=== PATIENT | female | born 1965 | race Two or more races ===

== ENCOUNTER → 2018-05-03 | Outpatient (CLI) | payer OTHER | LOC: FIMAGING 09:24 | PROVIDERS: ATTEND Surgery | DX: K44.9 Diaphragmatic hernia without obstruction or gangrene (principal); K22.70 Barrett's esophagus without dysplasia ==

== ENCOUNTER 2018-05-09 11:41 | Inpatient (IN) | payer OTHER ==
[~2018-05-09 11:41] MED LIST: BUPIVACAINE 0.5% 30 ML SDV ONE; HEPARIN 1000 UNIT/1 ML MDV ONE; ceFAZolin 1 GM/5 ML SYR ONE; cefOXitin SODIUM 2 GM in NS 100 ML IV ONE
[2018-05-09] MEDS ORDERED: LR 1,000 ML IV ONE (12:04)
--- NOTE | 2018-05-09 12:27 | PDHPUP ---
History & Physical Update H&P update statement: This history and physical update is based on an assessment of the patient which was completed after admission or registration (within 24 hours), but prior to the surgery/procedure. H&P update: H&P reviewed & patient examined, no change in patient's condition since H&P completed
--- NOTE | 2018-05-09 12:43 | PDANEPAE ---
ANE Past Medical History - Cardiovascular History Hx Hypertension: No Hx Arrhythmias: No Hx Chest Pain: No Hx Coronary Artery / Peripheral Vascular Disease: No Hx CHF / Valvular Disease: No Hx Palpitations: No - Pulmonary History Hx COPD: No Hx Asthma/Reactive Airway Disease: No Hx Recent Upper Respiratory Infection: No Hx Oxygen in Use at Home: No Hx Sleep Apnea: No - Neurologic History Hx Cerebrovascular Accident: No Hx Seizures: No Hx Dementia: No - Endocrine History Hx Diabetes: No - Renal History Hx Renal Disorders: No - Liver History Hx Hepatic Disorders: No - Neurological & Psychiatric Hx Hx Neurological and Psychiatric Disorders: No - Cancer History Hx Cancer: No - Congenital Disorder History Hx Congenital Disorders: No - GI History Hx Gastrointestinal Disorders: Yes Gastrointestinal History Comment: GERD-nexium. - Other Health History Other Health History: None - Chronic Pain History Chronic Pain: No - Surgical History Prior Surgeries: 2010-bladder sling. Total hysterectomy. ANE Review of Systems Review of Systems: ANE Patient History - Allergies Allergies/Adverse Reactions: No Known Allergies Allergy (Verified 05/08/18 13:46) - Home Medications Home Medications: Cholecalciferol Vit D3 [Vitamin D3 (*)] 1,000 units PO DAILY 05/08/18 [Last Taken 3 Days Ago ~05/06/18] Cyanocobalamin [Vitamin B12 (*)] 1,000 mcg PO DAILY 05/08/18 [Last Taken 3 Days Ago ~05/06/18] Esomeprazole Magnesium [Nexium 24Hr] 20 mg PO DAILY 05/08/18 [Last Taken ] Ferrous Sulfate [Ferrous Sulf 325 MG (*)] 325 mg PO DAILY 05/08/18 [Last Taken 2 Days Ago ~05/07/18] - NPO status NPO Since - Liquids (Date): 05/08/18 NPO Since - Liquids (Time): 21:00 NPO Since - Solids (Date): 05/08/18 NPO Since - Solids (Time): 22:30 - Smoking Hx Smoking Status: Never smoked - Family Anes Hx Family Hx Anesthesia Complications: none ANE Labs/Vital Signs - Vital Signs Blood Pressure: 119/84 Heart Rate: 84 Respiratory Rate: 14 O2 Sat (%): 93 Height: 152.4 cm Weight: 72.575 kg ANE Physical Exam - Airway Mallampati Score: Class 1 - ASA Status ASA Status: II ANE Anesthesia Plan Anesthesia Plan: general endotracheal anesthesia
[2018-05-09] MEDS ORDERED: MIDAZOLAM 2 MG/2 ML VIAL ONE (12:59)
[2018-05-09] MEDS ORDERED: PROPOFOL 200 MG/20 ML VIAL ONE (13:00)
[2018-05-09] MEDS ORDERED: fentaNYL 100 MCG/2 ML INJ ONE ×4 (13:00→17:36)
[2018-05-09] MEDS ORDERED: ONDANSETRON 4 MG/2 ML VIAL ONE ×3 (13:02→18:36)
[2018-05-09] MEDS ORDERED: ROCURONIUM 50 MG/5 ML VIAL ONE ×2 (13:02→14:58)
[2018-05-09] MEDS ORDERED: METOCLOPRAMIDE 10 MG/2 ML VIAL ONE (13:02)
[2018-05-09] MEDS ORDERED: HEPARIN 1000 UNIT/1 ML MDV ONE (13:33)
[2018-05-09] MEDS ORDERED: METHYLENE BLUE 0.5% 50 MG/10 ML AMP ONE (15:33)
[2018-05-09] MEDS ORDERED: SUGAMMADEX SODIUM 200 MG/2 ML VIAL IVP ONE (16:47)
[2018-05-09] MEDS ORDERED: ALBUTEROL 3 ML DEYVIAL IH PRN (17:30)
[2018-05-09] MEDS ORDERED: MEPERIDINE 25 MG/0.5 ML AMP IVP PRN (17:30)
[2018-05-09] MEDS ORDERED: LR 500 ML IV PRN (17:30)
[2018-05-09] MEDS ORDERED: NALOXONE HCL 0.4 MG/ML INJ IVP PRN (17:30)
--- NOTE | 2018-05-09 17:31 | POSTANESTH ---
Post Anesthetic Evaluation Cardiovascular Status: Normal, Stable Respiratory Status: Similar to Pre-op Cond. Level of Consciousness/Mental Status: Can Participate in Eval Pain Control: Adequate, Prn Tx Ordered Nausea/Vomiting Control: Adequate, Prn Tx Ordered Complications Possibly Related to Anesthesia: None Noted
--- NOTE | 2018-05-09 17:38 | POSTOPPROG ---
Post Op Note Date of Operation: 05/09/18 Surgeon: Alberto Singh [employer] Inspector: Sera De La Fuente Anesthesiologist: Mau Benz Anesthesia: GET(General Endotracheal) Pre-op Diagnosis: hiatal hernia c pain, GERD, ventral hernia Post-op Diagnosis: same, c adhesions at hernia site Procedure: see below Findings: Lg hiatal hernia, 1/2 stomach in chest, adhesions in RLQ @ VH and bladder Inf/Abcess present in the surg proc area at time of surgery?: No EBL: Minimal Specimen(s): none Procedure: laparoscopic hiatal hernia repair c Lizzie fundoplication; laparoscopic ventral hernia repair c mesh; adhesiolysis; cystotomy c laparotomy and repair
[2018-05-09] MEDS: fentaNYL 100 MCG/2 ML INJ IVP PRN ×2 (17:41→17:58)
[2018-05-09] MEDS ORDERED: HYDROmorphONE/DILAUDID 2 MG/ML INJ ONE (17:46)
[2018-05-09] MEDS: HYDROmorphONE/DILAUDID 2 MG/ML INJ IVP PRN ×3 (17:47→18:38)
[2018-05-09] MEDS: ONDANSETRON 4 MG/2 ML VIAL IVP PRN ×2 (18:04→18:38)
[2018-05-09] MEDS ORDERED: MEPERIDINE 25 MG/0.5 ML AMP ONE (18:09)
[2018-05-09] MEDS ORDERED: ALBUTEROL 3 ML DEYVIAL ONE (18:09)
[2018-05-09] MEDS: NS 1,000 ML IV SCH (20:13)
[2018-05-09] MEDS: cefOXitin SODIUM 1 GM in NS 50 ML IV SCH (20:13)
[2018-05-09] MEDS: DOCUSATE SODIUM 100 MG CAP PO SCH (20:14)
[2018-05-10] MEDS: cefOXitin SODIUM 1 GM in NS 50 ML IV SCH ×3 (01:57→14:28)
[2018-05-10] MEDS: HYDROmorphONE/DILAUDID 1 MG/ML INJ IVP PRN ×5 (03:32→21:39)
[2018-05-10] MEDS: NS 1,000 ML IV SCH (06:46)
[2018-05-10] MEDS: DOCUSATE SODIUM 100 MG CAP PO SCH ×2 (07:40→21:39)
[2018-05-10] MEDS: PANTOPRAZOLE SODIUM 40 MG VIAL IVP SCH (07:48)
[2018-05-10] MEDS ORDERED: ACETAMINOPHEN 325 MG TAB PO PRN (10:18)
--- NOTE | 2018-05-10 10:24 | SOAPPROG ---
TAMIAP Progress Note Assessment/Plan: Assessment/Plan: 53 Y F s/p hiatal hernia repair c Lizzie fundoplication, laparoscopic ventral hernia repair c mesh, cystotomy c laparotomy and repair. POD#1. Doing well. Clear liquid diet. Continue miguel x minimum 7 days from surgery. Iv abx x 24 hours post op for potential contamination and protection of mesh. VTE ppx starts tomorrow c lovenox. OOB. IS. Add toradol and tylenol for both ARROYO and incisional pain. Dispo: likely home in next 1-2 days with miguel. S: pain controlled but c/o ARROYO. no n/v. no shoulder or neck pain. denies flatus. O: alert, nad mmm chest decreased at bases rrr abd soft, hypoactive BS, inc cdi miguel catheter in place. 05/10/18 10:21 Objective: Vital Signs Temp Pulse Resp BP Pulse Ox 37.6 C 90 18 120/79 91 L 05/10/18 03:42 05/10/18 08:35 05/10/18 08:35 05/10/18 03:42 05/10/18 08:35 Laboratory Results 05/10/18 04:54 05/10/18 04:54 05/09/18 05/10/18 05/11/18 05:59 05:59 05:59 Intake Total 3400 Output Total 1450 Balance 1950 ICD10 Worksheet Patient Problems: Problems Problem Status Onset inverted appendix Acute
[2018-05-10] MEDS: KETOROLAC 15 MG/1 ML SDV IVP SCH ×3 (10:29→18:10)
--- NOTE | 2018-05-10 10:39 | PDMN ---
Medical Necessity Medical necessity: Pt meets inpt criteria per MD order and [facility] [place] [facility] [place]-[facility], Bladder Incision: Cystotomy, with laparotomy and repair, Medicare inpt only surg. 53 y/ o found to have lg hiatal hernia, adhesions in RLQ @VH and bladder, s/p laparoscopic hiatal hernia repair w/Lizzie fundoplication; laparoscopic ventral hernia repair w/mesh; cystotomy w/laparotomy and repair. Anticipate>2MN for above surg and post-op care.
--- NOTE | 2018-05-10 14:28 | ASMTCMCOM ---
CM Note CM Note Notes: Chart reviewed. 53 year old female admitted for ventral hernia repair . No current needs identified. CM available should other needs arise. Plan: TBD Date Signed: 05/10/2018 02:27 PM Electronically Signed By:Rasheeda Contreras RN
[2018-05-11] MEDS: KETOROLAC 15 MG/1 ML SDV IVP SCH ×5 (00:16→23:15)
[2018-05-11] MEDS: PANTOPRAZOLE SODIUM 40 MG VIAL IVP SCH (10:29)
[2018-05-11] MEDS: ENOXAPARIN 40 MG/0.4 ML SYR SC SCH (10:30)
[2018-05-11] MEDS: DOCUSATE SODIUM 100 MG CAP PO SCH ×2 (10:30→20:16)
--- NOTE | 2018-05-11 11:50 | SOAPPROG ---
SOAP Progress Note Assessment/Plan: Assessment: 53 Y F s/p hiatal hernia repair c Lizzie fundoplication, laparoscopic ventral hernia repair c mesh, cystotomy c laparotomy and repair. POD #2. S: Doing well overall. Biggest complaint is headache at the moment. Tolerating clears and passing gas. Denies nausea and dysphagia. Incisional pain well controlled. O: Alert Afebrile VSS RRR ctab, no increased WOB Abdomen: soft, slightly distended, hypoactive BS, dressing cdi : miguel with clear yellow urine Plan: Advance to soft diet. Dispo home likely tomorrow. Continue to get oob. Will plan to keep miguel in for one week. VTE ppx ordered for today. 05/11/18 11:46 Objective: Vital Signs Temp Pulse Resp BP Pulse Ox 37.1 C 92 16 117/78 92 05/11/18 09:19 05/11/18 09:19 05/11/18 09:19 05/11/18 09:19 05/11/18 09:19 Laboratory Results 05/10/18 04:54 05/10/18 04:54 05/10/18 05/11/18 05/12/18 05:59 05:59 05:59 Intake Total 3400 2585 Output Total 1450 2150 Balance 1950 435 ICD10 Worksheet Patient Problems: Problems Problem Status Onset inverted appendix Acute
[2018-05-11] MEDS: OXYCODONE/APAP 5/325 TAB PO PRN (12:18)
[2018-05-12] MEDS: KETOROLAC 15 MG/1 ML SDV IVP SCH ×2 (05:46→12:01)
[2018-05-12] MEDS: ENOXAPARIN 40 MG/0.4 ML SYR SC SCH (07:48)
[2018-05-12] MEDS: DOCUSATE SODIUM 100 MG CAP PO SCH (07:49)
[2018-05-12] MEDS: PANTOPRAZOLE SODIUM 40 MG VIAL IVP SCH (07:49)
[2018-05-12] MEDS: OXYCODONE/APAP 5/325 TAB PO PRN (08:11)
[2018-05-12] MEDS ORDERED: POLYETHYLENE GLYCOL 3350 17 GM PKT PO ONE (10:24)
[2018-05-12 12:56] VITALS: BP 113/79
--- NOTE | 2018-05-12 14:08 | SOAPPROG ---
SOAP Progress Note Assessment/Plan: Assessment: 53 Y F s/p hiatal hernia repair c Lizzie fundoplication, laparoscopic ventral hernia repair c mesh, cystotomy c laparotomy and repair. POD #2. S: Doing well overall. Tolerating soft diet and passing gas. Denies nausea and dysphagia. Incisional pain well controlled. O: Alert Afebrile RRR ctab, no increased WOB, sating at 93% on 3L Abdomen: soft, slightly distended, hypoactive BS, dressing cdi : miguel with clear yellow urine Plan: Dispo home today. Continue miguel for a total of 7 days. 05/12/18 14:06 Objective: Vital Signs Temp Pulse Resp BP Pulse Ox 36.9 C 88 16 113/79 88 L 05/12/18 12:52 05/12/18 13:44 05/12/18 13:44 05/12/18 12:52 05/12/18 13:44 Laboratory Results 05/10/18 04:54 05/10/18 04:54 05/11/18 05/12/18 05/13/18 05:59 05:59 05:59 Intake Total 2585 200 Output Total 2150 1180 Balance 435 -980 ICD10 Worksheet Patient Problems: Problems Problem Status Onset inverted appendix Acute
--- NOTE | 2018-05-12 14:13 | PDHOMEO2F ---
Home Oxygen Face to Face Home Orders: I certify that a physician or a nurse practitioner or physician's family assistant has had a [id number] encounter with this patient on the date of this order due to the diagnosis listed, which relates to the primary reason the patient requires home oxygen. Alternative treatments have been tried, or considered, and deemed ineffective. It is anticipated that supplemental oxygen will result in improvement with treatment. Home oxygen qualifying diagnosis: Hypoxia SpO2 on room air (%): 88 Frequency of home oxygen needed: continuous Home oxygen liters per minute: 3 Home oxygen delivery device: nasal cannula Concentrator: Yes E-tanks for mobility and back up: Yes If ordering portable O2, is the patient mobile in the home?: Yes I certify that, based on these findings, the home oxygen is medically necessary for this patient for the following length of time. Length of time home oxygen needed: 1 week
--- NOTE | 2018-05-12 14:23 | ASMTLACE ---
JANELE Length of stay for Answers: 2 days current admission Comorbidities - select Answers: Other Notes: GERD all that apply # of Emergency department Answers: 0 visits in the last 6 months Score: 3 Date Signed: 05/12/2018 02:22 PM Electronically Signed By:Rasheeda Contreras RN
--- NOTE | 2018-05-12 14:25 | ASMTDCNOTE ---
Case Management Discharge Discharge Order Complete? Answers: Yes Patient to Obtain Answers: Independently Medications Transportation Arranged Answers: Family/Friends Family Notified Answers: Yes Discharge Comments Notes: Chart reviewed. 53 year old female s/p ventral hernia repair medically cleared for discharge to home. No needs identified at this time. Case managment availbel should need arise. Plan: Home no needs. Date Signed: 05/12/2018 02:25 PM Electronically Signed By:Rasheeda Contreras RN
--- NOTE | 2018-05-14 13:09 | GOP ---
DATE OF OPERATION: 05/10/2018 SURGEON: Alberto Singh MD RISK MANAGEMENT DIRECTOR: ERVIN Fajardo ANESTHESIOLOGIST: Mau Benz MD PREOPERATIVE DIAGNOSIS: 1. Giant hiatal hernia. 2. Incisional ventral hernia. POSTOPERATIVE DIAGNOSIS: 1. Giant hiatal hernia. 2. Incisional ventral hernia. 3. Bladder laceration. PROCEDURE PERFORMED: 1. Laparoscopic hiatal hernia repair with Lizzie fundoplication. 2. Laparoscopic ventral hernia repair. 3. Laparoscopic and open repair of bladder laceration. FINDINGS: Patient was found to have a giant hiatal hernia with most of her stomach up in the chest, but it did reduce relatively easily. She had a moderate incisional hernia in the suprapubic area fro m previous hysterectomy and bowel resection incision that had bladder and small bowel adherent to the hernia sac, which resulted in a small tear in the bladder, which had to be repaired. DESCRIPTION OF PROCEDURE: The patient was taken to the operating room where she received satisfactor y general endotracheal anesthesia, placed in the supine position in frog legs, prepped and draped in the usual sterile fashion. Supraumbilical incision was made. A Veress needle inserted. Pneumoperitoneum was established and tr ocar was introduced. Laparoscope introduced. Good visualization was obtained. Four other trocars w ere placed in the upper abdomen under direct vision. The left lateral segment of the liver was eleva mora up with a liver retractor. The stomach was then reduced out of the chest. Dissection around the anterior and posterior liro was completed exposing both those structures. The hiatal hernia sac was divided as well allowing full reduction of the stomach back in the abdomen and mobilization of the e sophagus for 8 to 10 cm. After that dissection was completed, the diaphragmatic lior were approximated with interrupted 0 Ethi torres sutures. This was done over a 52 bougie dilator, creating a snug crural closure. The short gas trics were divided on the fundus of the stomach with the Harmonic scalpel and then a retroesophageal tunnel had been created and the fundus was passed around behind the esophagus, and the anterior fundo plication was created with interrupted 0 Ethibond sutures securing the anterior wall of the stomach t o the anterior wall of the esophagus to the fundoplication wrap. Bougie was removed and the repair a ppeared to be quite good. Attention was then turned inferiorly to the incisional hernia. The patient was placed in Trendelenbu rg position. The hernia edges were exposed dissecting the tissue off that. Small bowel was reduced. A thickened area was encountered and this was freed up from the edge of the scar, but appeared to b e the extension of the bladder over into the hernia sac and there was a small rent occurred in the bl adder taking this area down. That was then repaired laparoscopically with V-Loc 2-0 Vicryl suture in 2 layers. The hernia repair was then created with a dual sided Covidien mesh patch, which was ancho red in place circumferentially with 2 rows of Protac verona around the hernia defect with a good 1 i nch overlap in all directions. At that point, the bladder repair was tested with methylene blue injection in the Malagon catheter and at first appeared to be adequate, but as more pressure was put on the bladder, there did appear to be a small leak at 1 edge. I selected that point to make a midline suprapubic incision. Dissection wa s carried down through the linea alba and the abdomen was entered. The small bowel and colon were pa cked away. The defect repair was identified. There was indeed a small area at 1 corner that was not well closed. This was closed with a running Vicryl suture, and then, a second imbricating layer of 2-0 Vicryl suture was done to incorporate the suture line. This again was then tested with 500 cc in sertion into the bladder and there was no leak. The wound was copiously irrigated. At that point, the previous hernia repair was reinforced with interrupted 0 silk sutures around the c ircumference of the mesh as well. The linea alba was then closed with a running #1 PDS sutures. Sub cu was closed with 3-0 Vicryl and the skin with 4-0 Monocryl subcuticular suture. She tolerated the procedure well. She was taken to recovery room in good condition. COMPLICATIONS: There were no complications. /[id number]/MODL
== END 2018-05-12 18:30 | disposition home or self-care (01) | DRG 327 ==
LOC: F3N 11:41 → OBSVTOIN 17:34 → F3N 17:54 → F1N 19:51
PROVIDERS: ADMIT Surgery; ATTEND Surgery
DX: K44.9 Diaphragmatic hernia without obstruction or gangrene (principal); K43.2 Incisional hernia without obstruction or gangrene; N99.72 Accidental puncture and laceration of a genitourinary system organ or structure during other procedure; Z53.31 Laparoscopic surgical procedure converted to open procedure; R51 Headache; K21.9 Gastro-esophageal reflux disease without esophagitis
CPT/HCPCS: C1781; J0694; J1170; J1650; J1885; J2175; J2250; J2405; J2704; J2765; J3010; J7613; Q9968